=== PATIENT | female | born 2000 | race Caucasian/White ===

== ENCOUNTER 2023-04-03 17:25 | Emergency (ER) | payer OTHER, SELFPAY ==
[2023-04-03 17:31] VITALS: BP 86/67; PULSE 128; RESP 18; TEMP 36.8; O2SAT 100; BMI 19.9
[2023-04-03 17:32] VITALS: BP 86/67
[2023-04-03 17:34] VITALS: PULSE 124; RESP 25; O2SAT 98
[2023-04-03 17:35] VITALS: BP 87/65
--- NOTE | 2023-04-03 18:13 | ECG_ITS ---
[facility] Test Date: 2023-04-03 Pat Name: ETHAN KENNEY Department: Room: - Gender: Female [employer] In[employer]: : [id number] Requested By: [id number] Order Number: [id number] Reading MD: JANICE FUENTES Measurements Intervals [place] Rate: 123 P: 81 MA: 128 QRS: 103 QRSD: 78 T: 18 QT: 300 QTc: 373 Interpretive Statements 1120 Sinus tachycardia 4068 Nonspecific [place] abnormality 7300 Indeterminate axis 9140 abnormal rhythm ECG No previous ECG available for comparison Electronically Signed On 04-04-2023 6:57:18 EST by JANICE FUENTES
--- NOTE | 2023-04-03 18:13 | ED.NAVMDI1 ---
HPI - Nausea/Vomiting/Diarrhea General Chief complaint: Nausea/Vomiting/Diarrhea Stated complaint: FLU LIKE SYMPTOMS Time Seen by Provider: 04/03/23 18:04 Source: patient Mode of arrival: walk-in Limitations: no limitations History of Present Illness HPI Narrative: 20-year-old female presents for fast heartbeat. She began feeling ill last night and she felt like her heart was racing and at one point she was standing and she passed out. Subsequently she saw her PCP who put her on amoxicillin. She took her 1st dose in two hours later she vomited and started having diarrhea. She doesn't complain of abdominal pain in her throat does not hurt any longer Related Data Allergies Allergy/AdvReac Type Severity Reaction Status Date / Time No Known Drug Allergies Allergy Verified 04/03/23 17:35 Review of Systems ROS Narrative A ten point review of systems is negative except as noted above. Exam Narrative Exam Narrative: Nurses note and vital signs reviewed and patient is not hypoxic. General: The patient appears well and in no apparent distress. Patient is resting comfortably on cart. Skin: Warm, dry, no pallor noted. There is no rash noted. Head: Normocephalic, atraumatic Eye: Normal conjunctiva, no drainage Ears, Nose, Mouth, and Throat: oral mucosa is moist. Nares patent. Cardiovascular: Regular Rate and Rhythm, tachycardic Respiratory: Patient is in no distress, no accessory muscle use, lungs are clear to auscultation, no wheezing, rales or rhonchi Back: non-tender GI: no tenderness to palpation, no masses appreciated. No rebound, guarding, or rigidity noted. Musculoskeletal: The patient has no evidence of calf tenderness, no pitting edema, symmetrical pulses noted bilaterally Neurological: A&O, normal speech Psychiatric: Cooperative Constitutional Vital Signs, click to edit/add: Last Vital Signs Temp 98.3 F 04/03/23 17:31 Pulse 128 H 04/03/23 17:31 Resp 18 04/03/23 17:31 BP 86/67 L 04/03/23 17:31 Pulse Ox 100 04/03/23 17:31 O2 Del Method Room Air 04/03/23 17:31 Course Vital Signs Vital signs: Vital Signs Temperature 98.3 F 04/03/23 17:31 Pulse Rate 128 H 04/03/23 17:31 Respiratory Rate 18 04/03/23 17:31 Blood Pressure 86/67 L 04/03/23 17:31 Pulse Oximetry 100 04/03/23 17:31 Oxygen Delivery Method Room Air 04/03/23 17:31 Temperature 98.3 F 04/03/23 17:31 Pulse Rate 128 H 04/03/23 17:31 Respiratory Rate 18 04/03/23 17:31 Blood Pressure 86/67 L 04/03/23 17:31 Pulse Oximetry 100 04/03/23 17:31 Oxygen Delivery Method Room Air 04/03/23 17:31 MDM - Nausea/Vomiting/Diarrhea MDM Narrative Medical decision making narrative: Tests are ordered and the patient signout to Dr. Norton at change of shift. Lab Data Attestation: I reviewed the patient's lab results. Labs: Lab Results 04/03/23 Range/Units 17:55 WBC 16.2 H (4.0-11.0) 10^3/uL RBC 5.27 (4.20-5.40) 10^6/uL Hgb 15.4 (12.0-16.0) g/dL Hct 45.8 (36.0-48.0) % MCV 86.9 (81.0-99.0) fL MCH 29.2 (26.7-34.0) pg MCHC 33.6 (29.9-35.2) g/dL RDW 12.6 (11.0-15.0) % Plt Count 251 (150-450) 10^3/uL MPV 11.5 (9.5-13.5) fL Neut % (Auto) 88.4 H (43.0-75.0) % Lymph % (Auto) 5.6 L (20.5-60.0) % [place] % (Auto) 4.9 (1.7-12.0) % Eos % (Auto) 0.2 L (0.9-7.0) % Baso % (Auto) 0.4 (0.2-2.0) % Neut # (Auto) 14.3 H (1.4-6.5) 10^3/uL Lymph # (Auto) 0.9 L (1.2-3.8) 10^3/uL [place] # (Auto) 0.8 (0.3-0.8) 10^3/uL Eos # (Auto) 0.0 (0.0-0.7) 10^3/uL Baso # (Auto) 0.1 (0.0-0.1) 10^3/uL Abs Immat Gran (auto) 0.08 H (0.00-0.03) 10^3/uL Imm/Tot Granulo (auto) 0.5 (0.0-0.5) % Sodium 139 (136-145) mmol/L Potassium 3.8 (3.5-5.1) mmol/L Chloride 98 (98-107) mmol/L Carbon Dioxide 26.5 (21.0-32.0) mmol/L Anion Gap 18.3 BUN 7.0 (7.0-18.0) mg/dL Creatinine 0.91 (0.55-1.02) mg/dL Est GFR ( Amer) >60 (>=60) Est GFR (Non-Af Amer) >60 (>=60) BUN/Creatinine Ratio 7.7 Glucose 135 H (74-106) mg/dL Calcium 9.7 (8.5-10.1) mg/dL Serum HCG, Qual Negative (NEGATIVE) Discharge Plan Discharge Patient Disposition: Still a Patient
[2023-04-03 18:20] LABS: Basophils Absolute Auto 0.1 10^3/uL (0.0-0.1); Basophils Percent Auto 0.4 % (0.2-2.0); Eosinophils Percent Auto 0.2 % (0.9-7.0); Hematocrit 45.8 % (36.0-48.0); Hemoglobin 15.4 g/dL (12.0-16.0); Immature Granulocytes Abs Auto 0.08 10^3/uL (0.00-0.03); Immature Granulocytes Pct Auto 0.5 % (0.0-0.5); Lymphocytes Absolute Auto 0.9 10^3/uL (1.2-3.8); Lymphocytes Percent Auto 5.6 % (20.5-60.0); Mean Corpuscular HGB Conc 33.6 g/dL (29.9-35.2); Mean Corpuscular Hemoglobin 29.2 pg (26.7-34.0); Mean Corpuscular Volume 86.9 fL (81.0-99.0); Mean Platelet Volume 11.5 fL (9.5-13.5); Monocytes Absolute Auto 0.8 10^3/uL (0.3-0.8); Monocytes Percent Auto 4.9 % (1.7-12.0); Neutrophils Absolute Auto 14.3 10^3/uL (1.4-6.5); Neutrophils Percent Auto 88.4 % (43.0-75.0); Platelet Count 251 10^3/uL (150-450); Red Blood Count 5.27 10^6/uL (4.20-5.40); Red Cell Distribution Width 12.6 % (11.0-15.0); White Blood Count 16.2 10^3/uL (4.0-11.0)
[2023-04-03 18:23] LABS: Anion Gap 18.3; BUN Creatinine Ratio 7.7; Calcium 9.7 mg/dL (8.5-10.1); Carbon Dioxide 26.5 mmol/L (21.0-32.0); Chloride 98 mmol/L (98-107); Estimated GFR (African America >60 (>=60); Estimated GFR (Non-African Ame >60 (>=60); Glucose 135 mg/dL (74-106); HCG Qualitative NEGATIVE (NEGATIVE); Potassium 3.8 mmol/L (3.5-5.1); Sodium 139 mmol/L (136-145)
[2023-04-03] MEDS: 0.9 % SODIUM CHLORIDE 1,000 ML 1000 ML IV ×2 (18:26→22:00)
[2023-04-03] MEDS: ONDANSETRON PF 4 MG/2 ML VIAL IV (18:33)
[2023-04-03 19:09] VITALS: BP 105/71; PULSE 116; RESP 18; O2SAT 99
[2023-04-03] MEDS: 0.9 % SODIUM CHLORIDE 1,000 ML 999 ML IV (20:01)
[2023-04-03] MEDS: ONDANSETRON 4 MG RAPDIS TABLET SL (23:19)
[2023-04-03 23:29] VITALS: TEMP 37.7
== END 2023-04-03 23:38 | disposition home or self-care (01) ==
PROVIDERS: Emergency Medicine; Emergency Provider Internal Medicine
DX: E86.0 Dehydration (principal); R00.0 Tachycardia, unspecified; R11.10 Vomiting, unspecified; R19.7 Diarrhea, unspecified
CPT/HCPCS: 36415; 36592; 80048; 84703; 85025; 93005; 96361; 96374; 99285